=== PATIENT | female | born 1985 | race Caucasian/White ===

== ENCOUNTER 2019-03-18 11:44 | Outpatient (CLI) | payer OTHER | END 2019-03-18 11:45 | disposition home or self-care (01) | LOC: DTY/OP 11:44 | PROVIDERS: ATTEND Surgery | DX: E66.01 Morbid (severe) obesity due to excess calories (principal) | CPT/HCPCS: 97802 ==

== ENCOUNTER 2019-03-30 05:26 | Outpatient (CLI) | payer OTHER, SELFPAY ==
--- NOTE | 2019-03-30 11:44 | RAD ---
EXAM: Chest Two Views 03/30/2019 11:41 AM HISTORY: Preoperative chest radiograph COMPARISON: None. FINDINGS: Heart: Normal in size and contour. Pulmonary vessels: Normal. Costophrenic angles: Clear. Lungs: No confluent pneumonia, overt edema, pleural effusion, or other acute process. Pneumothorax: None. Osseous structures:Intact. Additional findings: None. IMPRESSION: No significant acute intrathoracic disease.
[2019-03-30 12:51] LABS: #Basophils 0.1 thou/uL (0.0-0.2); #Eosinphils 0.1 thou/uL (0.0-0.7); #Lymphocytes 1.9 thou/uL (1.20-3.40); #Monocytes 0.7 thou/uL (0.11-0.59); #Neutrophils 5.8 thou/uL (1.40-6.50); %Basophils 0.6 % (0.0-1.0); %Eosinophils 0.9 % (0.0-10.0); %Lymphocytes 22.1 % (21.0-51.0); %Monocytes 8.4 % (0.0-10.0); Hemoglobin 14.4 g/dL (12.0-16.0); Mean Corpuscular HGB CONC 33.7 g/dL (32.0-36.0); Mean Corpuscular Hemoglobin 30.9 pg (27.0-31.0); Mean Corpuscular Volume 91.8 fL (78.0-98.0); Mean Platelet Volume 9.3 fL (7.4-10.4); Platelet Count 298 thou/uL (130-400); RBC Distribution Width 11.6 % (11.5-14.5); Red Blood Cell (RBC) Count 4.64 mill/uL (4.20-5.40); White Blood Cell (WBC) Count 8.5 thou/uL (4.8-10.8)
[2019-03-30 13:00] LABS: BHCG - Serum Negative (NEGATIVE); Pregs Control Background? CLEAR/WHITE (CLR/WHITE); Pregs Control Bar Appear? YES (CONTROL BAR)
[2019-03-30 13:24] LABS: ALT (SGPT) 96 U/L (8-55); AST (SGOT) 45 U/L (5-34); Albumin 4.5 g/dL (3.5-5.0); Alkaline Phosphatase 139 U/L (40-150); Anion Gap 13 mmol/L (10-20); BUN (Urea Nitrogen) 13 mg/dL (7.0-18.7); Bilirubin, Direct 0.2 mg/dL (0.1-0.3); Bilirubin, Total 0.6 mg/dL (0.2-1.2); Calc. Creatinine Clearance 0 mL/min (70-130); Calcium 10.1 mg/dL (7.8-10.44); Carbon Dioxide 24 mmol/L (22-29); Chloride 106 mmol/L (98-107); Estimated GFR-MDRD Greater than 90; Globulin 3.3 g/dL (2.4-3.5); Glucose 80 mg/dL (70-105); Potassium 3.8 mmol/L (3.5-5.1); Protein, Total 7.8 g/dL (6.0-8.3); Sodium 139 mmol/L (136-145)
[2019-03-30 15:36] LABS: Hemoglobin A1c 4.8 % (4.0-6.0)
== END 2019-03-30 05:27 | disposition home or self-care (01) ==
LOC: LABBT 05:26
PROVIDERS: ATTEND Surgery
DX: Z01.818 Encounter for other preprocedural examination (principal); E66.01 Morbid (severe) obesity due to excess calories
CPT/HCPCS: 71046; 80053; 80076; 83036; 84703; 85025; 93005; 93010

== ENCOUNTER 2019-03-30 10:15 | Inpatient (IN) | payer OTHER ==
[2019-04-06] MEDS ORDERED: Lidocaine 1% PF 5 ML VIAL ONE (09:53)
[2019-04-06] MEDS ORDERED: Ketorolac Tromethamine 30 MG/ML VIAL ONE (09:53)
[2019-04-06] MEDS ORDERED: PROPOFOL 200 MG/20 ML VIAL ONE (09:53)
[2019-04-06] MEDS ORDERED: Rocuronium Bromide 10 MG/ML (10ML VIAL) ONE (09:53)
[2019-04-06] MEDS ORDERED: Glycopyrrolate 0.2 MG/ML 5 ML SYRINGE ONE (09:53)
[2019-04-06] MEDS ORDERED: ePHEDrine 50 MG/ML VIAL ONE (09:53)
[2019-04-06] MEDS ORDERED: Dexamethasone 20 MG/5 ML VIAL ONE (09:53)
[2019-04-06] MEDS ORDERED: PHENYLEPHRINE-NS 100 MCG/ML 10 ML SYRINGE ONE (09:53)
[2019-04-06] MEDS ORDERED: Ondansetron PF 4 MG/2 ML Vial ONE (09:53)
[2019-04-06] MEDS ORDERED: Heparin 5,000 UNITS/ML VIAL ONE (10:22)
[2019-04-06] MEDS ORDERED: Lidocaine 2% Jelly 5 ML TUBE ONE (11:43)
[2019-04-06] MEDS ORDERED: Fentanyl 100 MCG/2 ML VIAL ONE ×4 (11:43→14:22)
[2019-04-06] MEDS ORDERED: Midazolam HCl 2 mg/2 ml Vial ONE (11:44)
[2019-04-06] MEDS ORDERED: Bupivacaine/Epinephrine 0.25% 30 ML VIAL ONE (11:53)
[2019-04-06] MEDS ORDERED: Ondansetron HCl/PF 4 MG/2 ML Vial IVP PRN (13:14)
[2019-04-06] MEDS ORDERED: Promethazine HCl 25 MG/ML VIAL SLOW IVP PRN (13:14)
[2019-04-06] MEDS ORDERED: Promethazine HCl 25 MG/ML VIAL IM PRN ×3 (13:14→14:18)
[2019-04-06] MEDS ORDERED: Naloxone HCl 0.4 mg/ml Vial IV PRN (14:00)
[2019-04-06] MEDS ORDERED: Zolpidem Tartrate 5 MG TAB PO PRN (14:00)
[2019-04-06] MEDS ORDERED: diphenhydrAMINE 50 MG/ML VIAL IVP PRN ×2 (14:00→14:18)
[2019-04-06] MEDS ORDERED: fentaNYL Citrate/PF 2,000 MCG in Sodium Chloride 0.9% 60 ML IV PRN (14:00)
[2019-04-06] MEDS ORDERED: diphenhydrAMINE 25 MG CAP PO PRN (14:00)
[2019-04-06] MEDS ORDERED: Communication Order-Pharmacy FS SCH (14:00)
[2019-04-06] MEDS ORDERED: diphenhydrAMINE 50 MG/ML VIAL IM PRN (14:00)
[2019-04-06] MEDS ORDERED: Ondansetron PF 4 MG/2 ML Vial IVP PRN (14:18)
[2019-04-06] MEDS ORDERED: Dextrose 5% in Water 1,000 ML IV PRN (14:18)
[2019-04-06] MEDS ORDERED: hydrALAZINE 20 MG/ML VIAL SLOW IVP PRN (14:18)
[2019-04-06] MEDS ORDERED: Dextrose 50% Abboject 50 ML SYRINGE SLOW IVP PRN (14:18)
[2019-04-06] MEDS ORDERED: Promethazine HCl 25 MG/ML VIAL ONE (14:27)
[2019-04-06 15:17] VITALS: BMI 33.3
[2019-04-06] MEDS: D5 1/2 NS w/20 mEq KCL 1,000 ML IV SCH ×2 (17:35→20:58)
[2019-04-06] MEDS: Acetaminophen 1,000 MG in Premix Bag 1 BAG IVPB SCH (17:35)
[2019-04-06] MEDS: Ondansetron PF 4 MG/2 ML Vial IVP PRN (17:41)
--- NOTE | 2019-04-06 18:52 | OP ---
DATE OF PROCEDURE: 04/06/2019 PREOPERATIVE DIAGNOSIS: Morbid obesity with a body mass index of 33. POSTOPERATIVE DIAGNOSIS: Morbid obesity with a body mass index of 33. PROCEDURES PERFORMED: 1. Laparoscopic sleeve gastrectomy with [place] staple-line reinforcements and 38-[place] bougie. 2. Esophagogastroduodenoscopy. ANESTHESIA: General. ESTIMATED BLOOD LOSS: Minimal. COMPLICATIONS: None. SPECIMENS: Stomach. FINDINGS: Normal postoperative EGD. TECHNIQUE: The patient was taken to the operating room and laid supine on the operating room table. After general anesthetic was obtained, OG tube was used to decompress the stomach, and arms and legs were double strapped to bariatric table. Left subcostal 5 mm Optiview trocar was placed in the usual fashion, and high-flow pneumoperitoneum was obtained. Right subcostal 5-mm port as well as two abdominal 12 mm ports were all placed under direct visualization. A 5-mm incision was made at the xiphoid, and Juaquin was used to raise the liver off the GE junction. Short gastrics were taken down from mid body of stomach to left misha of diaphragm. Left misha, posterior fundus, and angle of His were completely dissected. Short gastrics were taken down to a distance of 5 cm proximal to the pylorus. OG tube was removed, and a 38 bougie was brought in its tip left in the antrum of the stomach. Multiple loads of the Daisy stapling device were used to perform the sleeve. The first was fired up at a distance of 6 cm proximal to the pylorus, angled up towards the incisura. Multiple loads were then fired up along the bougie. Stomach was completely transected at the angle of His. The stomach was removed from the left abdominal incision. This fascial defect was closed using GraNee needle and 0 Vicryl tie. There was no bleeding on the staple line. There was no bleeding in the abdomen. EGD scope was passed through esophagus stomach to the level of duodenum without obstruction or stricture. There was no stricture at the incisura. No air leakage or bleeding along the staple line. EGD scope was used to decompress the stomach, it was pulled and removed. Juaquin retractor was removed under direct visualization without injury or bleeding. All port sites were infiltrating using local anesthetic and removed under direct visualization without bleeding. Pneumoperitoneum was let down. Vicryl was used to close the fascial defect from the left side of the incision, and all incisions were irrigated and closed using 4-0 Monocryl and Dermabond. The patient was sent to Recovery in stable condition. All instrument counts, needle counts, and lap counts were correct. Job ID: [id number]
[2019-04-06] MEDS ORDERED: Enoxaparin Sodium 40 MG/0.4 ML SYRINGE SC SCH (21:00)
[2019-04-07] MEDS: Acetaminophen 1,000 MG in Premix Bag 1 BAG IVPB SCH ×2 (00:56→05:52)
[2019-04-07 05:43] LABS: #Monocytes 1.4 thou/uL (0.11-0.59); #Neutrophils 12.4 thou/uL (1.40-6.50); %Basophils 0.1 % (0.0-1.0); %Eosinophils 0.2 % (0.0-10.0); %Lymphocytes 6.6 % (21.0-51.0); %Monocytes 9.2 % (0.0-10.0); %Neutrophils 83.9 % (42.0-75.0); Hemoglobin 13.2 g/dL (12.0-16.0); Mean Corpuscular HGB CONC 32.5 g/dL (32.0-36.0); Mean Corpuscular Volume 92.3 fL (78.0-98.0); Mean Platelet Volume 7.8 fL (7.4-10.4); Platelet Count 302 thou/uL (130-400); RBC Distribution Width 11.6 % (11.5-14.5); Red Blood Cell (RBC) Count 4.39 mill/uL (4.20-5.40); White Blood Cell (WBC) Count 14.8 thou/uL (4.8-10.8)
[2019-04-07 06:07] LABS: Anion Gap 12 mmol/L (10-20); BUN (Urea Nitrogen) 8 mg/dL (7.0-18.7); Calc. Creatinine Clearance 194 mL/min (70-130); Calcium 9.3 mg/dL (7.8-10.44); Carbon Dioxide 23 mmol/L (22-29); Chloride 107 mmol/L (98-107); Estimated GFR-MDRD Greater than 90; Glucose 116 mg/dL (70-105); Potassium 4.6 mmol/L (3.5-5.1); Sodium 137 mmol/L (136-145)
[2019-04-07] MEDS: D5 1/2 NS w/20 mEq KCL 1,000 ML IV SCH (06:52)
[2019-04-07 07:32] VITALS: TEMP 98.2
[2019-04-07] MEDS: Ondansetron PF 4 MG/2 ML Vial IVP PRN (08:21)
[2019-04-07] MEDS ORDERED: Pantoprazole 40 MG VIAL IVP SCH (09:00)
--- NOTE | 2019-04-07 10:53 | DIS ---
DATE OF ADMISSION: 04/06/2019 DATE OF DISCHARGE: 04/07/2019 ADMISSION DIAGNOSIS: Obesity. DISCHARGE DIAGNOSIS: Obesity. PROCEDURE PERFORMED: Laparoscopic sleeve gastrectomy by Dr. Almodovar without complication. CONDITION ON DISCHARGE: Improved. STAFF: Bill Almodovar MD HOSPITAL COURSE: On postop day 1, the patient is tolerating a liquid diet. She is ambulatory. She has no complaints. Prescriptions for Lortab Elixir, Zofran dissolvable, and Protonix sent to [facility]. She will follow up with me in 2 weeks. Job ID: [id number]
[2019-04-07 12:05] VITALS: BP 135/81
[2019-04-07] MEDS ORDERED: Hydrocodone-Acetamin 15 ML UDCUP PO PRN (12:05)
== END 2019-04-07 12:45 | disposition home or self-care (01) | DRG 621 ==
LOC: SURG A 04-06 09:55
PROVIDERS: ADMIT Surgery; ATTEND Surgery
PROC: 0DB64Z3 Excision of Stomach, Percutaneous Endoscopic Approach, Vertical (ICD-10-PCS; principal; 2019-04-06)
PROC: 0DJ08ZZ Inspection of Upper Intestinal Tract, Via Natural or Artificial Opening Endoscopic (ICD-10-PCS; 2019-04-06)
DX: E66.01 Morbid (severe) obesity due to excess calories (principal); Z68.33 Body mass index [BMI] 33.0-33.9, adult
CPT/HCPCS: 36415; 80048; 85025; 88307; 88312; C9113; J0131; J0690; J1100; J1644; J1650; J1885; J2001; J2250; J2405; J2550; J2704; J3010; J3490

== ENCOUNTER 2020-07-27 16:59 | Inpatient (IN) | payer OTHER, SELFPAY ==
[2020-07-27 17:40] LABS: #Lymphocytes 1.3 thou/uL (1.20-3.40); #Monocytes 0.7 thou/uL (0.11-0.59); #Neutrophils 9.3 thou/uL (1.40-6.50); %Basophils 0.1 % (0.0-1.0); %Eosinophils 0.3 % (0.0-10.0); %Lymphocytes 11.8 % (21.0-51.0); %Monocytes 6.2 % (0.0-10.0); %Neutrophils 81.6 % (42.0-75.0); Hemoglobin 14.1 g/dL (12.0-16.0); Mean Corpuscular HGB CONC 33.5 g/dL (32.0-36.0); Mean Corpuscular Hemoglobin 31.4 pg (27.0-31.0); Mean Corpuscular Volume 93.7 fL (78.0-98.0); Mean Platelet Volume 8.4 fL (7.4-10.4); Platelet Count 262 thou/uL (130-400); RBC Distribution Width 11.4 % (11.5-14.5); Red Blood Cell (RBC) Count 4.48 mill/uL (4.20-5.40); White Blood Cell (WBC) Count 11.4 thou/uL (4.8-10.8)
[2020-07-27 17:51] LABS: BHCG - Serum Negative (NEGATIVE); Pregs Control Background? CLEAR/WHITE (CLR/WHITE); Pregs Control Bar Appear? YES (CONTROL BAR)
[2020-07-27 18:01] LABS: ALT (SGPT) 138 U/L (8-55); AST (SGOT) 204 U/L (5-34); Albumin 4.2 g/dL (3.5-5.0); Alkaline Phosphatase 185 U/L (40-110); Anion Gap 9 mmol/L (10-20); BUN (Urea Nitrogen) 15 mg/dL (7.0-18.7); Bilirubin, Total 0.9 mg/dL (0.2-1.2); Calc. Creatinine Clearance 0 mL/min (70-130); Carbon Dioxide 27 mmol/L (22-29); Chloride 107 mmol/L (98-107); Estimated GFR-MDRD 84; Globulin 2.8 g/dL (2.4-3.5); Glucose 97 mg/dL (70-105); Lipase 49 U/L (8-78); Potassium 3.9 mmol/L (3.5-5.1); Sodium 139 mmol/L (136-145)
[2020-07-27] MEDS ORDERED: Morphine 4 MG/ML VIAL SLOW IVP PRN (18:08)
[2020-07-27] MEDS ORDERED: Acetaminophen 325 MG TAB PO PRN (18:08)
[2020-07-27] MEDS ORDERED: Morphine 2 MG/ML VIAL SLOW IVP PRN (18:08)
[2020-07-27] MEDS ORDERED: HYDROcodone/Acetaminophen 10/325 mg Tablet PO PRN (18:08)
[2020-07-27] MEDS ORDERED: Promethazine HCl 25 MG/ML VIAL IM PRN (18:08)
[2020-07-27] MEDS ORDERED: Calcium Carbonate 500 MG ChewTAB PO PRN (18:08)
[2020-07-27] MEDS ORDERED: Ondansetron PF 4 MG/2 ML Vial IVP PRN (18:08)
[2020-07-27] MEDS ORDERED: Dextrose 5% in Water 1,000 ML IV PRN (18:08)
[2020-07-27] MEDS ORDERED: Mag-Al 1200 mg/1200 mg/30 ML UDCUP PO PRN (18:08)
[2020-07-27] MEDS ORDERED: hydrALAZINE 20 MG/ML VIAL SLOW IVP PRN (18:08)
[2020-07-27] MEDS ORDERED: Dextrose 50% Abboject 50 ML SYRINGE SLOW IVP PRN (18:08)
--- NOTE | 2020-07-27 18:32 | HP ---
CHIEF COMPLAINT: Upper abdominal pain. HISTORY OF PRESENT ILLNESS: This is a 34-year-old female who is status post laparoscopic sleeve gastrectomy by me, who presents with a history of intermittent upper abdominal pain, described as sharp, occurs mostly after heavier meals, associated with nausea and vomiting. Pain was more severe today after lunch, where she had some crab legs. She denies constipation or diarrhea. No dysuria. No previous known history of cholangitis or pancreatitis. Previous ultrasound at [facility] showed gallstones. PAST MEDICAL HISTORY: She denies. SURGICAL HISTORY: Laparoscopic sleeve gastrectomy. MEDICATIONS: Daily [id number] antacid. ALLERGIES: NO KNOWN DRUG ALLERGIES. SOCIAL HISTORY: No smoking, alcohol, or other drugs. She is . REVIEW OF SYSTEMS: Otherwise negative unless described above. PHYSICAL EXAMINATION: HEENT: Sclerae are anicteric. Oropharynx clear. NECK: No lymphadenopathy. CHEST: Clear. HEART: Regular rate. ABDOMEN: Soft. Tender in the right upper quadrant with localized guarding without rebound. No abdominal or inguinal hernias. Well-healed abdominal incisions. EXTREMITIES: No ischemia or edema to extremities. LABORATORY DATA: White blood cell count 11 and hemoglobin 14. Sodium 139, potassium 3.9, and creatinine 0.79. AST and ALT of 204 and 138, alkaline phosphatase is 185, and her lipase is normal. ASSESSMENT: Acute cholecystitis with elevated liver function tests. PLAN: Await COVID test. Laparoscopic cholecystectomy with intraoperative cholangiogram tomorrow. Risks, benefits, and alternatives discussed. She gives consent. We will do this tomorrow. Job ID: [id number]
[2020-07-27 18:50] LABS: Bilirubin Negative (Negative); Blood, Urine Negative (Negative); Clarity Turbid (Clear); Glucose, Urine (Dipstick) Normal (Negative); Ketone, Urine Negative (Negative); Leukocyte Negative Leu/uL (Negative); Nitrite Negative (Negative); Protein, Urine (Dipstick) Negative (Neg-Trace); Specific Gravity, Urine 1.024 (1.002-1.036); Urobilinogen 3 mg/dL (Less than 2); pH, Urine 7.5 (5.0-9.0)
[2020-07-27] MEDS: Famotidine 20 MG TAB PO SCH (22:41)
[2020-07-27] MEDS: D5 1/2 NS w/20 mEq KCL 1,000 ML IV SCH (22:46)
[2020-07-27] MEDS: cefOXitin Sodium/Dextrose,Iso 2 GM in Premix Bag 1 BAG IVPB SCH (22:46)
[2020-07-27] MEDS: Famotidine/PF 20 mg/2ml Vial SLOW IVP SCH (22:47)
[2020-07-28 05:43] LABS: ALT (SGPT) 535 U/L (8-55); AST (SGOT) 734 U/L (5-34); Albumin 3.7 g/dL (3.5-5.0); Alkaline Phosphatase 184 U/L (40-110); Bilirubin, Direct 1.7 mg/dL (0.1-0.3); Bilirubin, Total 2.3 mg/dL (0.2-1.2); Protein, Total 6.2 g/dL (6.0-8.3)
[2020-07-28] MEDS: cefOXitin Sodium/Dextrose,Iso 2 GM in Premix Bag 1 BAG IVPB SCH ×2 (06:17→15:57)
[2020-07-28] MEDS: Famotidine/PF 20 mg/2ml Vial SLOW IVP SCH ×2 (09:18→20:11)
[2020-07-28] MEDS: D5 1/2 NS w/20 mEq KCL 1,000 ML IV SCH ×3 (09:27→18:17)
[2020-07-28 09:43] VITALS: BMI 21.9
[2020-07-28] MEDS ORDERED: PROPOFOL 200 MG/20 ML VIAL ONE (11:45)
[2020-07-28] MEDS ORDERED: Ondansetron PF 4 MG/2 ML Vial ONE (11:45)
[2020-07-28] MEDS ORDERED: Dexamethasone 20 MG/5 ML VIAL ONE (11:45)
[2020-07-28] MEDS ORDERED: Lidocaine 1% PF 5 ML VIAL ONE (11:45)
[2020-07-28] MEDS ORDERED: Rocuronium Bromide 10 MG/ML (10ML VIAL) ONE (11:45)
[2020-07-28 13:26] LABS: SARS-CoV-2 MS2 Positive; SARS-CoV-2 N Gene Negative; SARS-CoV-2 S Gene Negative; SARS-CoV-2 by NAA Not Detected (NotDetected); SARS-CoV-2 orf1ab Negative
[2020-07-28] MEDS ORDERED: Lidocaine 2% Jelly 5 ML TUBE ONE (14:25)
[2020-07-28] MEDS ORDERED: Bupivacaine 0.25% HCL 30 ML VIAL ONE (14:27)
[2020-07-28] MEDS ORDERED: Lidocaine 1% w/Epinephrine 1:100K 20 ML VIAL ONE (14:27)
[2020-07-28] MEDS ORDERED: Iothalamate Meglumine 60% 50 ML VIAL FS ONE (14:27)
[2020-07-28] MEDS ORDERED: Fentanyl 100 MCG/2 ML VIAL ONE ×3 (14:42→16:31)
[2020-07-28] MEDS ORDERED: SUGAMMADEX SODIUM 200 MG/2 ML VIAL ONE (14:49)
[2020-07-28] MEDS ORDERED: cefOXitin Sodium/Dextrose 2 GM/50 ML BAG ONE (14:52)
[2020-07-28] MEDS ORDERED: Midazolam HCl 2 mg/2 ml Vial ONE ×2 (14:59→16:44)
[2020-07-28] MEDS: Famotidine 20 MG TAB PO SCH ×2 (15:08→20:40)
--- NOTE | 2020-07-28 16:19 | RAD ---
Cholangiogram intraoperative 2 views: 07/28/2020 HISTORY: 34-year-old female undergoing laparoscopic cholecystectomy for cholelithiasis. FINDINGS: 2 images submitted. Contrast opacification via cystic stump injection, of minimally dilated common bi le duct, common hepatic duct, and left and right hepatic ducts. There is a filling defect at the most inferior aspect of the common bile duct, through which there is delayed passage of a small amoun t of contrast into the lumen of the duodenum. No other filling defect is visualized. IMPRESSION: Evidence for low-grade partial obstruction at the ampulla (papilla) of Vater. In this young age group , this is presumed to represent choledocholithiasis rather than neoplasm
[2020-07-28] MEDS ORDERED: Ketorolac Tromethamine 30 MG/ML VIAL IVP PRN (16:29)
[2020-07-28] MEDS ORDERED: Dextrose 50% Abboject 50 ML SYRINGE SLOW IVP PRN (16:29)
[2020-07-28] MEDS ORDERED: Mag-Al 1200 mg/1200 mg/30 ML UDCUP PO PRN (16:29)
[2020-07-28] MEDS ORDERED: HYDROcodone/Acetaminophen 7.5/325 mg Tablet PO PRN (16:29)
[2020-07-28] MEDS ORDERED: Promethazine HCl 25 MG/ML VIAL IM PRN (16:29)
[2020-07-28] MEDS ORDERED: hydrALAZINE 20 MG/ML VIAL SLOW IVP PRN (16:29)
[2020-07-28] MEDS ORDERED: Morphine 4 MG/ML VIAL SLOW IVP PRN (16:29)
[2020-07-28] MEDS ORDERED: Calcium Carbonate 500 MG ChewTAB PO PRN (16:29)
[2020-07-28] MEDS ORDERED: Dextrose 5% in Water 1,000 ML IV PRN (16:29)
[2020-07-28] MEDS ORDERED: Ketorolac Tromethamine 30 MG/ML VIAL ONE (16:45)
[2020-07-28] MEDS: Ondansetron PF 4 MG/2 ML Vial IVP PRN (19:22)
[2020-07-28] MEDS: Morphine 2 MG/ML VIAL SLOW IVP PRN (19:30)
[2020-07-28] MEDS: HYDROcodone/Acetaminophen 7.5/325 mg Tablet PO PRN (21:59)
--- NOTE | 2020-07-28 23:41 | OP ---
DATE OF PROCEDURE: 07/28/2020 PREOPERATIVE DIAGNOSIS: Acute cholecystitis. POSTOPERATIVE DIAGNOSES: Acute cholecystitis plus choledocholithiasis. PROCEDURES PERFORMED: Laparoscopic cholecystectomy and intraoperative cholangiogram. ANESTHESIA: General. ESTIMATED BLOOD LOSS: Minimal. COMPLICATIONS: None. SPECIMEN: Gallbladder. FINDINGS: Common bile duct stone. DESCRIPTION OF PROCEDURE: The patient was taken to the operating room and laid supine on the operating room table. After general anesthetic was obtained, her abdomen was prepped and draped in a sterile fashion. Curved incision was made below the umbilicus. Cautery was dissected down to and score the fascia. Abdominal cavity was entered bluntly using a Sophia clamp. Holding stitch of PDS was placed on each side of fascia. Charan trocar was placed. High-flow pneumoperitoneum was obtained. Upper midline 5-mm port and 2 right upper quadrant 5 mm ports were placed under direct visualization. Gallbladder was extracted from the gallbladder fossa. The peritoneum was opened anteriorly and posteriorly. Critical view triangle was seen showing only the cystic duct and cystic artery branching medial to lateral. A clip was placed high on the cystic duct. A small ductotomy was made just proximal to that. Cholangiocatheter was brought in through a separate incision, placed in the cystic duct and a cholangiogram was performed, which shows no contrast flow into the duodenum initially. There was a meniscus sign and obvious common bile duct stone. After glucagon, a small amount of contrast able to be excreted into the bile duct, but not much. There was persistent distal common bile duct obstruction. Cholangiocatheter was removed and 2 clips were placed proximally on the cystic duct. It was cut using laparoscopic scissors. Cystic artery was taken using 2 clips proximally, 1 clip distally, cut using laparoscopic scissors. The gallbladder was dissected out the gallbladder fossa using cautery and placed in an EndoCatch bag and brought out through the Charan. There was no bleeding or bile in the liver bed. The right upper quadrant was irrigated until returns were clear. Local anesthetic was infiltrated using all incisions. All port sites were removed under direct visualization without bleeding. Pneumoperitoneum was let down. PDS was used to close the fascial defect below the umbilicus. All incisions were irrigated and closed using 4-0 Monocryl and Dermabond. The patient was sent to Recovery in stable condition. All instrument counts, needle counts, and lap counts were correct. Job ID: [id number]
[2020-07-29] MEDS: cefOXitin Sodium/Dextrose,Iso 2 GM in Premix Bag 1 BAG IVPB SCH ×4 (00:14→23:47)
[2020-07-29] MEDS: D5 1/2 NS w/20 mEq KCL 1,000 ML IV SCH ×4 (02:04→23:49)
--- NOTE | 2020-07-29 02:09 | CON ---
DATE OF CONSULTATION: 07/28/2020 REASON FOR CONSULTATION: Choledocholithiasis seen on intraoperative cholangiogram. CONSULTING PROVIDER: Bill Almodovar MD HISTORY OF PRESENT ILLNESS: The patient is a 34-year-old female with past medical history of GERD and obesity status post sleeve gastrectomy, presenting with complaints of right upper quadrant abdominal pain. She states that she had been having increased right upper quadrant abdominal discomfort since November 2019 that was characterized more as increasing discomfort with jostling type movements. However, she did have a "severe attack" in November 2019 and again one day prior to this admission that she characterized as a tight/pressure type pain was constant with waxing/waning severity, radiated to the mid back and reached a severity of 10/10. She denied any clear alleviating or exacerbating factors, but did have associated nausea without vomiting with the onset of this pain. With worsening of this abdominal pain, it prompted her to seek healthcare assistance at [facility], where she was diagnosed with cholecystitis and underwent laparoscopic cholecystectomy. However, during the course of the procedure, she had an intraoperative cholangiogram that showed the presence of a possible filling defect within the common bile duct consistent with choledocholithiasis. Currently the patient denies any fevers, chills, vomiting, hematemesis, melena, hematochezia, dysphagia, odynophagia, diarrhea, constipation, or weight loss. REVIEW OF SYSTEMS: A 10-category review of systems was obtained with all responses negative except for the pertinent positives as listed in HPI. PAST MEDICAL HISTORY: As per HPI. PAST SURGICAL HISTORY: Laparoscopic sleeve gastrectomy. FAMILY HISTORY: Denies any GI malignancies. SOCIAL HISTORY: Denies any tobacco, alcohol, or illicit drug use. OUTPATIENT MEDICATIONS: Nexium daily. ALLERGIES: NO KNOWN DRUG ALLERGIES. PHYSICAL EXAMINATION: VITAL SIGNS: Temperature 98.6, pulse 60, blood pressure 125/77, respiratory rate 20, and saturating 98% on room air. GENERAL: The patient was lying in bed, in no acute distress. Alert and oriented x4. HEENT: Normocephalic and atraumatic. NECK: Supple. No JVD or scleral icterus noted. CARDIOVASCULAR: Regular rate and rhythm with no discernible murmurs, gallops, or rubs. RESPIRATORY: Clear to auscultation bilaterally with no discernible wheezes or rales. ABDOMEN: Normoactive bowel sounds. Soft and nondistended. Tenderness to palpation in the right upper quadrant and midepigastric region along with the laparoscopic trocar sites from earlier today. EXTREMITIES: No cyanosis, clubbing, or edema. LABORATORY DATA: CBC with a white blood cell count of 11.4, hemoglobin 14.4, hematocrit 42, and platelets 262. Chemistry with a sodium of 139, potassium 3.9, chloride 107, CO2 of 27, BUN 15, creatinine 0.79, glucose 97, AST 734, ALT 535, alkaline phosphatase 184, total bilirubin 2.3, albumin 4.0, and lipase 49. IMAGING DATA: Intraoperative cholangiogram performed on July 28, 2020 showed evidence for a low-grade partial obstruction at the ampulla of Vater, presumed to represent choledocholithiasis. ASSESSMENT AND PLAN: The patient is a 34-year-old female with past medical history of gastroesophageal reflux disease and obesity status post sleeve gastrectomy, presenting with acute cholecystitis with choledocholithiasis on intraoperative cholangiogram. Choledocholithiasis. The patient is presenting with acute onset of right upper quadrant abdominal pain characterized as a tight/pressure type sensation and reaching a severity of 10/10. On admission, she was diagnosed with cholecystitis based on elevated LFTs and a prior ultrasound showing cholelithiasis. Subsequently, she underwent laparoscopic cholecystectomy and during the procedure, underwent intraoperative cholangiogram, which showed the presence of a possible filling defect within the distal common bile duct consistent with choledocholithiasis. Based on her elevated liver enzyme pattern and the presence of a filling defect on intraoperative cholangiography, endoscopic retrograde cholangiopancreatography for extraction of the biliary stone is indicated. Recommendations; 1. Would place the patient on a liquid diet with n.p.o. at midnight in anticipation of endoscopic retrograde cholangiopancreatography tomorrow. 2. Would plan for endoscopic retrograde cholangiopancreatography tomorrow morning and possible extraction of the biliary stone. 3. Pain control per primary team. 4. Agree with antibiotic administration as part of prophylaxis for cholangitis. We will continue to follow. Please call with any questions. Job ID: [id number]
[2020-07-29 05:20] LABS: #Lymphocytes 0.9 thou/uL (1.20-3.40); #Monocytes 0.8 thou/uL (0.11-0.59); #Neutrophils 6.2 thou/uL (1.40-6.50); %Eosinophils 0.2 % (0.0-10.0); %Lymphocytes 11.6 % (21.0-51.0); %Monocytes 9.7 % (0.0-10.0); %Neutrophils 78.5 % (42.0-75.0); Hemoglobin 12.8 g/dL (12.0-16.0); Mean Corpuscular HGB CONC 32.3 g/dL (32.0-36.0); Mean Corpuscular Hemoglobin 30.7 pg (27.0-31.0); Mean Corpuscular Volume 95.1 fL (78.0-98.0); Mean Platelet Volume 9.5 fL (7.4-10.4); Platelet Count 217 thou/uL (130-400); RBC Distribution Width 11.4 % (11.5-14.5); Red Blood Cell (RBC) Count 4.18 mill/uL (4.20-5.40); White Blood Cell (WBC) Count 7.9 thou/uL (4.8-10.8)
[2020-07-29 05:55] LABS: ALT (SGPT) 673 U/L (8-55); AST (SGOT) 417 U/L (5-34); Albumin 3.5 g/dL (3.5-5.0); Alkaline Phosphatase 182 U/L (40-110); Anion Gap 11 mmol/L (10-20); BUN (Urea Nitrogen) 6 mg/dL (7.0-18.7); Bilirubin, Total 4.2 mg/dL (0.2-1.2); Calc. Creatinine Clearance 123 mL/min (70-130); Calcium 8.8 mg/dL (7.8-10.44); Carbon Dioxide 23 mmol/L (22-29); Chloride 109 mmol/L (98-107); Estimated GFR-MDRD Greater than 90; Globulin 2.4 g/dL (2.4-3.5); Glucose 123 mg/dL (70-105); Lipase 16 U/L (8-78); Potassium 4.5 mmol/L (3.5-5.1); Protein, Total 5.9 g/dL (6.0-8.3); Sodium 138 mmol/L (136-145)
[2020-07-29] MEDS: Morphine 2 MG/ML VIAL SLOW IVP PRN (05:57)
[2020-07-29] MEDS: Ondansetron PF 4 MG/2 ML Vial IVP PRN (06:47)
[2020-07-29] MEDS: Famotidine/PF 20 mg/2ml Vial SLOW IVP SCH ×2 (07:55→20:48)
--- NOTE | 2020-07-29 08:34 | PRG ---
DATE OF SERVICE: 07/29/2020 SUBJECTIVE: Ms. Thayer is complaining of nausea this morning, minimal pain. OBJECTIVE: VITAL SIGNS: She is afebrile. Vital signs are stable. ABDOMEN: Soft and appropriately tender. Wounds are healing well. LABORATORY DATA: Bilirubin is up to 4.2 today. Lipase is normal. ASSESSMENT: Common bile duct stone found on laparoscopic cholecystectomy with cholangiogram yesterday. PLAN: ERCP by Dr. Ibrahim today. I will leave that to Dr. Ibrahim whether she gets discharged home later today or tomorrow. Prescription for [place] and Zofran [facility] in [place]. If she is here tomorrow, Dr. Johnston will be covering for me. Job ID: [id number]
[2020-07-29] MEDS ORDERED: Dexamethasone 20 MG/5 ML VIAL ONE (09:54)
[2020-07-29] MEDS ORDERED: diphenhydrAMINE 50 MG/ML VIAL ONE (09:54)
[2020-07-29] MEDS ORDERED: Metoclopramide HCl 10 MG/2 ML VIAL ONE (09:54)
[2020-07-29] MEDS ORDERED: Glycopyrrolate 0.2 MG/ML 5 ML SYRINGE ONE (09:54)
[2020-07-29] MEDS ORDERED: PROPOFOL 200 MG/20 ML VIAL ONE (09:54)
[2020-07-29] MEDS ORDERED: Rocuronium Bromide 10 MG/ML (10ML VIAL) ONE (09:54)
[2020-07-29] MEDS ORDERED: Ondansetron PF 4 MG/2 ML Vial ONE (09:54)
[2020-07-29] MEDS ORDERED: Ketorolac Tromethamine 30 MG/ML VIAL ONE (09:54)
[2020-07-29] MEDS ORDERED: Lidocaine 1% PF 5 ML VIAL ONE (09:54)
[2020-07-29] MEDS: Famotidine 20 MG TAB PO SCH ×2 (10:18→19:59)
[2020-07-29] MEDS ORDERED: Iothalamate Meglumine 60% 50 ML VIAL FS ONE (10:25)
[2020-07-29] MEDS ORDERED: Indomethacin 50 MG SUPP ONE (10:25)
[2020-07-29] MEDS ORDERED: Fentanyl 100 MCG/2 ML VIAL ONE (10:47)
[2020-07-29] MEDS ORDERED: HYDROmorphone 2 MG/ML VIAL SLOW IVP PRN ×2 (11:27→12:00)
[2020-07-29] MEDS ORDERED: Promethazine HCl 25 MG/ML VIAL SLOW IVP PRN ×2 (11:27→12:00)
[2020-07-29] MEDS ORDERED: Promethazine HCl 25 MG/ML VIAL IM PRN ×2 (11:27→12:00)
[2020-07-29] MEDS ORDERED: Ondansetron HCl/PF 4 MG/2 ML Vial IVP PRN (12:00)
[2020-07-29] MEDS ORDERED: PACU-Morphine 4MG/ML VIAL SLOW IVP PRN (12:00)
--- NOTE | 2020-07-29 12:25 | RAD ---
EXAM: XR ERCP PROVIDED CLINICAL HISTORY: Stone manipulation. Patient is post laparoscopic cholecystectomy secondary to cholelithiasis. COMPARISON: Intraoperative cholangiogram on 07/28/2020 FINDINGS/IMPRESSION: 2 intraoperative fluoroscopic images from ERCP are submitted. The common duct is cannulated with guid ewire in place. There is faint opacification of the common duct and proximal intrahepatic bile ducts. The distal common duct is obscured due to overlying endoscope. Filling defect seen within the distal common duct on intraoperative cholangiogram is unable to be assessed on this study. No intrahepatic biliary ductal dilatation is seen. Imaging demonstrating free spill of contrast into the bowel is not provided. Correlation with intraoperative findings is recommended.
--- NOTE | 2020-07-29 15:42 | OP ---
DATE OF PROCEDURE: 07/29/2020 PROCEDURES PERFORMED: Endoscopic retrograde cholangiopancreatography with sphincterotomy and removal of biliary calculi/sludge. INDICATION FOR PROCEDURE: Choledocholithiasis seen on intraoperative cholangiogram during laparoscopic cholecystectomy. DESCRIPTION OF PROCEDURE: After the risks and benefits of the procedure were explained to the patient including risks of bleeding, infection, perforation, reactions to anesthesia, aspiration, post-ERCP pancreatitis, and/or pain, informed consent was obtained. The patient was then taken to the endoscopy suite, where general anesthesia was administered followed by endotracheal tube intubation. Once the patient was sedated and intubated, she was maneuvered into the prone position in anticipation of the ERCP. Once in adequate position, the standard duodenoscope was introduced into the mouth with intubation of the esophagus, stomach, and the proximal small intestines with the findings listed below. The patient tolerated the procedure well with no immediate perioperative complications. On conclusion of the procedure, all equipment was removed from the patient and the patient was transferred to PACU in satisfactory condition. FINDINGS: EGD findings: Limited views were obtained during the EGD portion of this examination, given the side-viewing nature of the duodenoscope. However, of the mucosa visualized, normal-appearing mucosa was seen in the proximal, mid, and distal esophagus. Surgical change consistent with sleeve gastrectomy was encountered within the stomach, but there were no other abnormalities encountered in this region. Normal-appearing mucosa was seen in the duodenal bulb and second portion of the duodenum as well. There was no evidence of erosions, ulcerations, mass lesions, or active/recent bleeding seen during this portion of the examination. ERCP findings: The ampulla of Vater was easily identified within the second portion of the duodenum and did not exhibit any abnormal appearance. Using a 5 mm Ultratome sphincterotome, the ampulla was successfully cannulated with a guidewire then placed into the intrahepatic biliary tree. Once the guidewire was adequately in place, an initial cholangiogram was performed showing adequate filling of both intra and extrahepatic biliary tree with the common bile duct measuring approximately 3 to 4 mm in diameters and no obvious filling defects seen in the distal common bile duct. However, given the recent intraoperative cholangiogram showing the presence of a stone within the distal common bile duct, a sphincterotomy was then performed with good hemostasis during this maneuver. Once the sphincterotomy was performed, the sphincterotome was then removed over the guidewire using an exchange technique for a 9 to 12 mm biliary balloon. The 9 to 12 biliary balloon was then advanced into the common bile duct and using successive sleeves with the 9 mm balloon, a minimal amount of biliary sludge and possible stone debris was obtained. No overt stones were removed from the common bile duct. After this was performed, the 9 mm balloon was then advanced to the common hepatic duct and an occlusion cholangiogram was performed showing adequate filling of the intrahepatic biliary tree and with removal of the balloon, the cystic duct was noted without any evidence of leakage or rupture, no filling defects were seen during the occlusion cholangiogram. At which point, all equipment was then removed from the patient and the procedure was terminated. IMPRESSION: 1. Presence of biliary sludge and microlithiasis in the distal common bile duct, now status post successful removal with biliary balloon. 2. Common bile duct measuring 3 to 4 mm in diameter. 3. Adequate filling and drainage of both the intrahepatic and extrahepatic biliary tree at the end of the procedure. RECOMMENDATIONS: 1. Would continue to monitor the patient in the postoperative setting for a possible post ERCP pancreatitis. 2. Pain control per primary team. 3. Would place the patient on a full liquid diet and advance as tolerated. 4. Would obtain repeat LFTs tomorrow morning and if adequately decreasing, could consider the patient for discharge if no evidence of post ERCP pancreatitis. We will continue to follow. Please call with any questions. Job ID: [id number]
[2020-07-29] MEDS: HYDROcodone/Acetaminophen 7.5/325 mg Tablet PO PRN (20:01)
[2020-07-30] MEDS: HYDROcodone/Acetaminophen 7.5/325 mg Tablet PO PRN (04:14)
[2020-07-30 05:37] LABS: #Lymphocytes 2.2 thou/uL (1.20-3.40); #Monocytes 0.7 thou/uL (0.11-0.59); #Neutrophils 4.3 thou/uL (1.40-6.50); %Basophils 0.3 % (0.0-1.0); %Eosinophils 0.6 % (0.0-10.0); %Lymphocytes 29.9 % (21.0-51.0); %Monocytes 10.1 % (0.0-10.0); %Neutrophils 59.1 % (42.0-75.0); Hemoglobin 11.4 g/dL (12.0-16.0); Mean Corpuscular HGB CONC 32.3 g/dL (32.0-36.0); Mean Corpuscular Hemoglobin 30.7 pg (27.0-31.0); Mean Corpuscular Volume 95.2 fL (78.0-98.0); Mean Platelet Volume 9.3 fL (7.4-10.4); Platelet Count 194 thou/uL (130-400); RBC Distribution Width 11.4 % (11.5-14.5); Red Blood Cell (RBC) Count 3.69 mill/uL (4.20-5.40); White Blood Cell (WBC) Count 7.3 thou/uL (4.8-10.8)
[2020-07-30 06:02] LABS: ALT (SGPT) 460 U/L (8-55); AST (SGOT) 180 U/L (5-34); Albumin 3.1 g/dL (3.5-5.0); Alkaline Phosphatase 147 U/L (40-110); Anion Gap 10 mmol/L (10-20); BUN (Urea Nitrogen) 5 mg/dL (7.0-18.7); Bilirubin, Total 2.8 mg/dL (0.2-1.2); Calc. Creatinine Clearance 127 mL/min (70-130); Calcium 8.1 mg/dL (7.8-10.44); Carbon Dioxide 23 mmol/L (22-29); Chloride 109 mmol/L (98-107); Estimated GFR-MDRD Greater than 90; Glucose 111 mg/dL (70-105); Potassium 3.9 mmol/L (3.5-5.1); Protein, Total 5.1 g/dL (6.0-8.3); Sodium 138 mmol/L (136-145)
[2020-07-30] MEDS: cefOXitin Sodium/Dextrose,Iso 2 GM in Premix Bag 1 BAG IVPB SCH (08:29)
[2020-07-30] MEDS: Famotidine/PF 20 mg/2ml Vial SLOW IVP SCH (08:30)
[2020-07-30] MEDS: Famotidine 20 MG TAB PO SCH (08:30)
[2020-07-30 09:04] VITALS: BP 108/68; TEMP 98.1
[2020-07-30] MEDS: D5 1/2 NS w/20 mEq KCL 1,000 ML IV SCH (11:31)
== END 2020-07-30 11:45 | disposition home or self-care (01) | DRG 419 ==
LOC: ERS 16:59 → SURG A 18:11 → OBSVTOIN 18:11
PROVIDERS: ADMIT Surgery; ATTEND Surgery
PROC: 0FC98ZZ Extirpation of Matter from Common Bile Duct, Via Natural or Artificial Opening Endoscopic (ICD-10-PCS; 2020-07-27)
PROC: 0FT44ZZ Resection of Gallbladder, Percutaneous Endoscopic Approach (ICD-10-PCS; principal; 2020-07-28)
PROC: BF101ZZ Fluoroscopy of Bile Ducts using Low Osmolar Contrast (ICD-10-PCS; 2020-07-28)
DX: K80.42 Calculus of bile duct with acute cholecystitis without obstruction (principal); K21.9 Gastro-esophageal reflux disease without esophagitis; E66.9 Obesity, unspecified; Z20.828 Contact with and (suspected) exposure to other viral communicable diseases; Z93.1 Gastrostomy status; Z68.21 Body mass index [BMI] 21.0-21.9, adult
CPT/HCPCS: 36415; 47532; 74330; 80053; 80076; 81003; 83690; 84703; 85025; 87635; 88304; 96361; 96365; 96375; 96376; 99284; G0378; J0694; J1100; J1200; J1610; J1885; J2250; J2270; J2405; J2704; J2765; J3010; J3480; S0020; S0028; U0003